=== PATIENT | female | born 1965 | race Caucasian/White ===

== ENCOUNTER 2023-04-25 11:24 | Emergency (ER) | payer BC, OTHER ==
[~2023-04-25] VITALS: Ht 149.9 cm; Wt 72.6 kg
[2023-04-25 11:26] VITALS: BP_SYST 146; PULSE 95; RESP 18; TEMP 98.3; O2SAT 99
[2023-04-25] MEDS ORDERED: DOXY-244 PO (12:35)
[2023-04-25] MEDS ORDERED: DIPHTH,PERTUSS(ACELL),TET VAC 0.5 ML VIAL (Tdap) I.M. ONE (12:45)
[2023-04-25] MEDS ORDERED: ACETAMINOPHEN 325 MG TABLET PO ONE (12:45)
[2023-04-25 14:09] VITALS: BP_SYST 146; PULSE 95; RESP 18; TEMP 98.3; O2SAT 99
== END 2023-04-25 14:08 | disposition home or self-care (01) ==
LOC: SED 11:24
DX: S41.131A Puncture wound without foreign body of right upper arm, initial encounter (principal); S41.151A Open bite of right upper arm, initial encounter; S60.511A Abrasion of right hand, initial encounter; Z79.899 Other long term (current) drug therapy; W55.01XA Bitten by cat, initial encounter; Y93.89 Activity, other specified; Y92.89 Other specified places as the place of occurrence of the external cause; Y99.8 Other external cause status
CPT/HCPCS: 90715; 99283